=== PATIENT | female | born 1975 | race Caucasian/White ===

== ENCOUNTER 2017-10-18 09:09 | Emergency (ER) | payer OTHER ==
[~2017-10-18 09:09] MED LIST: Z.0.NO CURRENT MEDS
[2017-10-18 09:12] VITALS: BP 134/85; PULSE 75; RESP 16; TEMP 98.7; O2SAT 100
[2017-10-18] MEDS ORDERED: CYCL5TAB PO (10:01)
[2017-10-18] MEDS ORDERED: MELO7.5T27 PO (10:01)
--- NOTE | 2017-10-18 10:01 | PD ---
HPI Chief Complaint: Pain: Acute or Chronic Time Seen by Provider: 09:32 Travel History International Travel<30 days: No Contact w/Intl Traveler<30days: No Traveled to known affect area: No History of Present Illness HPI This is a 42-year-old female who was a history of lumbar discectomy who presents to the emergency department with increasing pain over the past 2 days of her lower back. Patient describes a sharp pulling pain in her lower back mostly on the right, radiating down her leg into her foot, intermittent, worse with walking and sitting, improved with laying flat. She denies any numbness or weakness and denies any bowel or bladder incontinence. She says that she's had intermittent symptoms like this for a while that for the past 2 days at [place] and worse. 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 PFSH Past Medical History Tubal Ligation: Yes Past Surgical History Cholecystectomy: Yes Social History Alcohol Use: No Tobacco Use: Yes (1PPD) Substance Use: No Allergies-Medications (Allergen,Severity, Reaction): Coded Allergies: codeine (Unverified Allergy, Unknown, 05/04/17) Reported Meds & Prescriptions Reported Meds & Active Scripts Active Reported No Current Meds (Miscellaneous Medication) Misc Review of Systems Except as stated in HPI: all other systems reviewed are Neg Physical Exam Narrative GENERAL:Well appearing, no acute distress SKIN: Focused skin assessment warm and dry. HEAD: Atraumatic. Normocephalic. EYES: Pupils equal and round. No injection or drainage. ENT: Moist mucous membranes NECK: Trachea midline. CARDIOVASCULAR: Regular rate and rhythm. No murmur appreciated. Normal capillary refill in both lower extremities, extremities are warm and well perfused. RESPIRATORY: Clear to auscultation. Breath sounds equal bilaterally. GASTROINTESTINAL: Abdomen soft, non-tender, nondistended. MUSCULOSKELETAL: No obvious deformities. Pain in the right lower extremity with ipsilateral and contralateral straight leg raise. NEUROLOGICAL: Awake and alert. No obvious cranial nerve deficits. 5/5 strength in the bilateral lower extremities. PSYCHIATRIC: Appropriate mood and affect; insight and judgment normal. Data Data Last Documented VS Vital Signs Date Time Temp Pulse Resp B/P (MAP) Pulse Ox O2 Delivery O2 Flow Rate FiO2 10/18/17 09:12 98.7 75 16 134/85 (101) 100 Room Air MDM Medical Decision Making Medical Screen Exam Complete: Yes Emergency Medical Condition: Yes Interpretation(s) Afebrile, no tachycardia, normotensive Differential Diagnosis Lumbar radiculopathy, cauda equina syndrome, herniated disc, osteomyelitis Narrative Course This is a 42-year-old female who has a history of a lumbar discectomy in her 20s who presents to the emergency department with pain classic for lumbosacral radiculopathy. Pt. has history of disc herniation in the past. She has no signs or symptoms of cauda equina syndrome. She has a normal neurovascular exam. Patient will be discharged on anti-inflammatories and muscle relaxer and will be given a work excuse for 2 weeks. She'll follow-up with her primary care physician. She has no history of IV drug use. I don't think any imaging is warranted given her age and abscence of red flag symptoms Diagnosis Primary Impression: Lumbosacral radiculopathy Patient Instructions: General Instructions Additional Instructions: If you develop weakness of your legs, difficulty walking, numbness of your legs or your genital or rectal area, loss of your bowel or bladder, or difficulty urinating return to the emergency department immediately. Followup with your primary care physician in one week if your symptoms have not improved. Med/Other Pt SpecificInfo: Prescription(s) given Scripts Cyclobenzaprine (Flexeril) 5 Mg Tab 5 MG PO TID for Muscle Spasm, #15 TAB 0 Refills Prov: Betsy Suarez MD 10/18/17 Meloxicam (Meloxicam) 7.5 Mg Tab 7.5 MG PO DAILY for Arthritis Pain for 14 Days, #14 TAB 0 Refills Prov: Betsy Suarez MD 10/18/17 Disposition: 01 DISCHARGE HOME Condition: Stable Betsy Suarez MD Oct 18, 2017 10:01
[2017-10-18] MEDS ORDERED: KETOROLAC TROMETHAMINE 60 MG/2 ML (IM) VIAL IM ONE (10:15)
== END 2017-10-18 10:34 | disposition home or self-care (01) ==
LOC: NEPD 09:09
DX: M54.17 Radiculopathy, lumbosacral region (principal); F17.210 Nicotine dependence, cigarettes, uncomplicated; Z88.5 Allergy status to narcotic agent
CPT/HCPCS: 96372; 99284; J1885